=== PATIENT | female | born 1980 | race Caucasian/White ===

== ENCOUNTER 2020-01-01 16:29 | Emergency (ER) | payer SELFPAY ==
[~2020-01-01] VITALS: Ht 167.6 cm; Wt 68.9 kg
[2020-01-01 16:33] VITALS: BP 135/78
--- NOTE | 2020-01-01 16:42 | NUR ---
PT SENT TO WAIT IN TENT DUE TO SYMPTOMS OF LOSS OF TASTE/SMELL
--- NOTE | 2020-01-01 17:39 | NUR ---
PATIENT LEFT WITHOUT BEING SEEN BY DR. BREWSTER. NO FURTHER CARE PROVIDED FOR PATIENT.
== END 2020-01-01 17:39 | disposition left against medical advice (07) ==
LOC: MED 16:29
DX: M54.5 Low back pain (principal); Z53.21 Procedure and treatment not carried out due to patient leaving prior to being seen by health care provider